=== PATIENT | female | born 1970 ===

== ENCOUNTER 2021-07-10 17:28 | Emergency (ER) | payer OTHER ==
[2021-07-10 21:48] LABS: BASOPHIL 0.3 % (0-2); EOSINOPHIL 1.4 % (0-5); HCT 42.1 % (37.0-47.0); HGB 14.1 g/dl (12.5-16.0); LYMPHOCYTE 29.1 % (15-48); MCH 30.5 pg (25.0-31.0); MCHC 33.5 g/dL (32.0-36.0); MCV 90.9 fL (78.0-100.0); MPV 11.4 fL (6.0-9.5); NEUTROPHIL 59.9 % (41-80); NRBC 0; PLT 262 K/uL (150-400); RBC 4.63 M/uL (4.20-5.40)
[2021-07-10 22:21] LABS: ALBUMIN 3.8 g/dL (3.4-5.0); BILIRUBIN - TOTAL 0.3 mg/dL (0.2-1.0); BUN/CREAT RATIO (CALC) 15.7 RATIO; CREATININE 0.51 mg/dL (0.51-0.95); GLOBULIN (CALCULATION) 4.1 g/dL; POTASSIUM 3.5 mmol/L (3.5-5.1); TOTAL PROTEIN 7.9 g/dL (6.4-8.2)
[2021-07-10] MEDS ORDERED: AZITHROMYCIN250 MG PO (23:55)
== END 2021-07-11 00:08 | disposition home or self-care (01) ==
LOC: FER 17:28
PROVIDERS: Emergency Medicine
DX: U07.1 COVID-19 (principal); R91.8 Other nonspecific abnormal finding of lung field
CPT/HCPCS: 36415; 71045; 80053; 84484; 85025; 93005; J2405; J7030